=== PATIENT | female | born 1985 | race Caucasian/White ===

== ENCOUNTER 2016-05-24 23:54 | Inpatient (IN) | payer OTHER ==
[~2016-05-24] VITALS: Ht 157.5 cm; Wt 83.2 kg
[~2016-05-24 23:54] MED LIST: AUGMENTIN875 MG PO; KEFLEX500 MG PO; PRENATAL TABLE1 EAC3 PO; REGLAN5 MG PO; SERTRALINE HCL100 MG PO; ZOFRAN ODT4 MG PO
[2016-05-25] VITALS (27 sets, daily range): BP systolic 80–124; BP diastolic 48–74
[2016-05-25] MEDS ORDERED: IRON325 M1 PO (00:20)
[2016-05-25] MEDS ORDERED: NITROFURANTOIN50 MG PO (00:21)
[2016-05-25 01:23] LABS: EOSINOPHIL (%) 0.2 % (0-5); EOSINOPHIL COUNT 0.1 K/uL (0-0.3); HEMATOCRIT 32.5 % (36.0-46.0); IMMATURE GRANULOCYTE (%) 0.2 % (0.0-0.7); IMMATURE GRANULOCYTE COUNT 0.5 K/uL; LYMPHOCYTE COUNT 1.3 K/uL (1.0-2.8); MCH 33.2 PG (29.0-34.0); MCHC 35.7 G/DL (30.0-36.0); MCV 93.1 FL (83-99); MEAN PLAT.VOLUME 9.5 uM^3 (9.5-12.4); MONOCYTE (%) 4.8 % (3-12); NEUTROPHIL (%) 88.1 % (45-76); NEUTROPHIL COUNT 17.6 K/uL (1.8-6.4); PLATELET COUNT 215 K/uL (156-360); RBC DIS.WIDTH-CV 13.4 % (11.8-14.6); RBC DIS.WIDTH-SD 43.9 % (39-53); RED BLOOD COUNT 3.49 M/uL (3.80-5.20)
[2016-05-25 01:53] LABS: ADD MIUA? YES; BILIRUBIN NEGATIVE; BLOOD MODERATE; COLOR YELLOW ((YELLOW)); GLUCOSE (STRIP) NEGATIVE; KETONES TRACE; LEUKOCYTES MODERATE; NITRITE NEGATIVE; PH, URINE 8.5 (5-8); PROTEIN (STRIP) 30; SPECIFIC GRAVITY 1.013 (1.000-1.030)
[2016-05-25 02:07] LABS: BACTERIA 1+ /HPF; CASTS NONE SEEN /LPF; CRYSTALS NONE SEEN; EPITHELIAL CELLS RARE /HPF; MUCUS NONE SEEN /LPF; RED BLOOD CELLS 0-5 /HPF (0-5); UCUL ADDED? YES; WHITE BLOOD CELLS TNTC /HPF (0-5)
[2016-05-25 02:28] LABS: AMPHETAMINES QUANT VALUE 0 NG/ML; BARBITUATES QUANT VALUE 0 NG/ML; BENZODIAZEPINES QUANT VALUE 0 NG/ML; BENZODIAZEPINES, URINE SCREEN Negative (200 ng/mL); MARIJUANA QUANT VALUE 0 NG/ML; OPIATES QUANTITATIVE VALUE 0 NG/ML; PHENCYCLIDINE QUANT VALUE 0 NG/ML
[2016-05-25 02:58] LABS: DRSB INTERNAL CONTROL PASS; PROBE CHECK PASS; SPECIMEN PROCESSING CONTROL PASS
[2016-05-25] MEDS ORDERED: MOTRIN800 MG PO (10:27)
[2016-05-25] MEDS ORDERED: PERCOCET 5/31 TABLET PO (10:27)
[2016-05-26 03:05] VITALS: BP 80/42
[2016-05-26 07:23] VITALS: BP 84/48
[2016-05-26 07:24] LABS: EOSINOPHIL (%) 0.5 % (0-5); EOSINOPHIL COUNT 0.1 K/uL (0-0.3); HEMATOCRIT 25.5 % (36.0-46.0); IMMATURE GRANULOCYTE (%) 0.3 % (0.0-0.7); IMMATURE GRANULOCYTE COUNT 0.1 K/uL; LYMPHOCYTE COUNT 1.9 K/uL (1.0-2.8); MCHC 33.7 G/DL (30.0-36.0); MONOCYTE (%) 5.5 % (3-12); MONOCYTE COUNT 0.9 K/uL (0-0.8); NEUTROPHIL (%) 82.6 % (45-76); NEUTROPHIL COUNT 14.2 K/uL (1.8-6.4); RBC DIS.WIDTH-CV 14.4 % (11.8-14.6); RBC DIS.WIDTH-SD 50.8 % (39-53); WHITE BLOOD COUNT 17.2 K/uL (4.1-10.2)
[2016-05-26 07:28] LABS: MCV 97.7 FL (83-99); RED BLOOD COUNT 2.61 M/uL (3.80-5.20)
[2016-05-26 08:08] LABS: MEAN PLAT.VOLUME 9.8 uM^3 (9.5-12.4); PLAT.SUFFICIENCY DECREASED; PLATELET COUNT 143 K/uL (156-360); USER ID CCL
[2016-05-26 11:23] VITALS: BP 94/55
[2016-05-26 14:48] VITALS: BP 107/60
[2016-05-26 18:54] VITALS: BP 100/60
[2016-05-26 21:29] VITALS: BP 107/68
[2016-05-27 04:32] VITALS: BP 100/50
[2016-05-27 07:37] VITALS: BP 103/54
[2016-05-27 15:10] VITALS: BP 113/73
[2016-05-27 23:39] VITALS: BP 103/66
[2016-05-28 08:00] VITALS: BP 110/73
[2016-05-28 15:00] VITALS: BP 111/86
[2016-05-28 22:22] VITALS: BP 109/67
[2016-05-29 07:28] VITALS: BP 106/64
[2016-05-29] MEDS ORDERED: SERTRALINE HCL50 MG PO (09:53)
[2016-05-29 14:59] VITALS: BP 127/79
== END 2016-05-29 18:30 | disposition home or self-care (01) | DRG 765 ==
LOC: LDRP-OP 23:54 → 2WEST 23:55 → LDRP-OP 08-07 15:11
PROVIDERS: Obstetrics & Gynecology
DX: O60.14X0 Preterm labor third trimester with preterm delivery third trimester, not applicable or unspecified (principal); O41.1430 Placentitis, third trimester, not applicable or unspecified; K55.1 Chronic vascular disorders of intestine; O69.3XX0 Labor and delivery complicated by short cord, not applicable or unspecified; O98.52 Other viral diseases complicating childbirth; O99.344 Other mental disorders complicating childbirth; K31.84 Gastroparesis; B00.9 Herpesviral infection, unspecified; F32.9 Major depressive disorder, single episode, unspecified; F41.9 Anxiety disorder, unspecified; O99.824 Streptococcus B carrier state complicating childbirth; Z37.0 Single live birth; O99.613 Diseases of the digestive system complicating pregnancy, third trimester; Z3A.34 34 weeks gestation of pregnancy
CPT/HCPCS: 74000; 76805; 81003; 85025; 87081; 87086; 87653; 88307; G0378; J0690; J0702; J1170; J2175; J2270; J2274; J2405; J2540; J2795; J3010; J7120

== ENCOUNTER → 2017-08-15 | Outpatient (CLI) | payer OTHER ==
[~2017-08-15] VITALS: Ht 160 cm; Wt 42.2 kg
[~2017-08-15] MED LIST changes: +IRON325 M1 PO; +MOTRIN800 MG PO; +NITROFURANTOIN50 MG PO; +PAXIL10 MG PO; +PERCOCET 5/31 TABLET PO; +SERTRALINE HCL50 MG PO
== END | disposition home or self-care (01) ==
LOC: AMB 10:30
PROC: 0DJ08ZZ Inspection of Upper Intestinal Tract, Via Natural or Artificial Opening Endoscopic (ICD-10-PCS; principal; 2017-08-15)
DX: R10.13 Epigastric pain (principal); R11.2 Nausea with vomiting, unspecified; R14.0 Abdominal distension (gaseous); F50.02 Anorexia nervosa, binge eating/purging type; K90.9 Intestinal malabsorption, unspecified; K55.1 Chronic vascular disorders of intestine; R63.6 Underweight; Z82.49 Family history of ischemic heart disease and other diseases of the circulatory system; Z80.52 Family history of malignant neoplasm of bladder
CPT/HCPCS: J2250; J7643

== ENCOUNTER → 2017-11-20 | Outpatient (CLI) | payer OTHER | END | disposition home or self-care (01) | LOC: NUC 06:59 | DX: K31.84 Gastroparesis (principal) | CPT/HCPCS: 78264; A9541 ==